=== PATIENT | male | born 1990 | race Caucasian/White ===

== ENCOUNTER 2017-10-28 09:45 | Emergency (ER) | payer OTHER, SELFPAY ==
[2017-10-28 09:48] VITALS: BP 133/86; PULSE 73; RESP 16; TEMP 37.4; O2SAT 99; BMI 30.1
--- NOTE | 2017-10-28 10:14 | ED.VISSUMM ---
- ER Visit Summary Date of Service: 10/28/17 Chief Complaint: Left lower quadrant abdominal wall pain History of Present Illness: The patient is a 27 M who presents with left lower quadrant abdominal pain. He was playing basketball yesterday. Apparently there was a family contest of dunking. He was kneed in the right lower quadrant. He presents with left lower quadrant pain. Sitting up standing up bending over causes him pain. He denies nausea, vomiting diarrhea. He denies hematemesis, melena hematochezia. He denies dysuria, frequency, urgency or hematuria. He has no other complaints. There is no past medical history diabetes, renal disease or bleeding ulcers. Physical Examination: Vital signs are noted and blood pressure slightly elevated 133/86. He appears no obvious distress. HEENT is unremarkable. Insert cardiac normal exam abdomen is remarkable tenderness left lower quadrant without guarding or rebound tenderness. There is no outward signs of trauma. There is no CVA tenderness. Remainder of exam is unremarkable. Test Results: None Emergency Department Course and Treatment: NSAIDs since there is no contraindication. Treatment Plan: With history of trauma and movement causing him pain with no guarding rebound tenderness etc. we will treat symptomatically Disposition: Discharged home Impression: Abdominal wall strain secondary to blunt trauma This note was generated with [facility] dictation software. It may contain incorrect words, spelling, and punctuation that were not noted in review of the chart prior to signing ED Disposition - Plan for ED Patient: Disposition: Home or Assisted Living Chief Complaint: Abd Pain Instructions: ED Strain Abdominal Muscle Prescriptions: Naproxen [Naprosyn] 500 mg PO BID #10 tab Referrals: Yo Lozano MD [Primary Care Provider] - 1 Week if not improving
== END 2017-10-28 10:27 | disposition home or self-care (01) ==
PROVIDERS: Emergency Provider Emergency Medicine; Family Provider Family Medicine; PCP Family Medicine
DX: S39.011A Strain of muscle, fascia and tendon of abdomen, initial encounter (principal); W21.9XXA Striking against or struck by unspecified sports equipment, initial encounter; Y93.67 Activity, basketball; Y92.310 Basketball court as the place of occurrence of the external cause; Y99.8 Other external cause status
CPT/HCPCS: 99282

== ENCOUNTER 2022-07-24 07:35 | Emergency (ER) | payer OTHER, SELFPAY ==
[2022-07-24 07:36] VITALS: BP 147/91; PULSE 78; RESP 18; TEMP 36.1; O2SAT 99; BMI 33.4
--- NOTE | 2022-07-24 07:48 | EX.ED.UPPERE ---
HPI History of Present Illness Chief Complaint: Upper Extremity Injury Informant: patient Onset/Context/Timing Onset: Days (5 days) Context: Gradual Onset Timing: Waxes and wanes Current Severity: Moderate Maximum Severity: Moderate Narrative Narrative: Patient presents secondary to left shoulder and arm pain. He states last he was picking up sticks in his yard before mowing. He then mowed the yard. That evening he started having some tightness in his left shoulder. Throughout the weekend it is continued to worsen. When sitting at rest he will have an aching sensation around his left shoulder blade that radiates down his arm but is significantly worse with any movement. He will intermittently have some numbness in his hand that is positional in nature. He is right-hand dominant. There was no fall or direct trauma. PFSH PFS Medical History no medical history no medical history Home Medications cyclobenzaprine 10 mg tablet 10 mg PO TID PRN Muscle Spasm #20 TABLETS 07/24/22 [Rx Last Taken Unknown] hydrocodone-acetaminophen 5-325mg 5mg-325mg 1 tab PO Q4H PRN PRN Pain 3 days #10 TABLETS 07/24/22 [Rx Last Taken Unknown] naproxen 500 mg tablet (Naprosyn) 500 mg PO BID PRN pain #20 tabs 07/24/22 [Rx Last Taken Unknown] Allergy/AdvReac Type Severity Reaction Status Date / Time bee pollen Allergy Swelling Verified 07/24/22 07:46 Social History Smoking Status: Current every day smoker tobacco type: cigarettes ROS ROS ED Constitutional Constitutional ED: Denies chills or fever(s) Eyes Eyes: Denies change in vision or discharge from eye(s) ENT ENT ED: Denies discharge from eye(s) Cardiovascular Cardiovascular: Denies chest pain or palpitations Respiratory/Chest Respiratory/Chest: Denies cough or dyspnea Gastrointestinal Gastrointestinal: Denies abdominal pain, nausea or vomiting Genitourinary Genitourinary ED: Denies dysuria Musculoskeletal Musculoskeletal: Reports back pain and extremity pain Integumentary Denies Abrasions or rash Neurologic Neurologic: Reports paresthesias; Denies headache(s) or weakness Psychiatric Psychiatric: Denies anxiety or depression Allergic/Immunologic Allergic/Immunologic ED: Denies lip swelling or urticaria EXAM Physical Exam Const Vital Signs: 07/24/22 07:36 Temperature 96.9 F L Temperature Source Temporal Pulse Rate 78 Respiratory Rate 18 Blood Pressure 147/91 H Blood Pressure Mean 109 Pulse Ox 99 Oxygen Delivery Method Room Air Positive well nourished and well developed General Appearance ED: well developed HEENT Reports moist mucous membranes Eyes PERRL and EOMs intact bilaterally Chest Wall inspection of chest normal and palpation of chest normal Resp normal respiratory effort and clear to auscultation bilaterally Cardio regular rate and regular rhythm GI non-tender Back/Spine Back/Spine Narrative: Reproducible tenderness in the left thoracic paraspinal muscles. Extremity Extremity Narrative: No focal tenderness to palpation over the shoulder or elbow on the left upper extremity. Strong distal pulses. Strong hand grasp. Neuro oriented x3 and moves all extremities Neuro Narrative: No focal neurodeficits. Sensorium / Orientation: alert MDM MDM MDM Narrative Medical decision making narrative: Patient's history and exam all appear to be consistent with musculoskeletal pain. I do not feel imaging is needed at this time. Patient will be initiated with naproxen, Flexeril, [place]. He is given a work note for today. Discharge Plan Triage Chief Complaint: Upper Extremity Injury ED Provider: Francy Ashton Dx/Rx/DC Orders Clinical Impression: Strain of thoracic paraspinal muscles excluding T1 and T2 levels, Muscle spasm, Radiculopathy Instructions: ED Back Spasm, No Trauma, ED Muscle Spasm Prescriptions: New naproxen [Naprosyn] 500 mg tablet 500 mg PO BID PRN (Reason: pain) Qty: 20 0RF cyclobenzaprine 10 mg tablet 10 mg PO TID PRN (Reason: Muscle Spasm) Qty: 20 0RF hydrocodone-acetaminophen 5-325 mg tablet 1 tab PO Q4H PRN PRN (Reason: Pain) 3 Days Qty: 10 0RF Stand Alone Forms: ED Work / School Excuse Primary Care Provider: Yo Lozano Referrals: Yo Lozano MD [Primary Care Provider] - 3-5 Days if not improving Disposition Disposition: Home, Self Care
[2022-07-24] MEDS: Naproxen 500 MG Tablet PO (08:02)
[2022-07-24 08:03] VITALS: BP 143/79; PULSE 78; RESP 16; TEMP 36.7; O2SAT 99
== END 2022-07-24 08:07 | disposition home or self-care (01) ==
LOC: ED 08:01
PROVIDERS: Emergency Provider Emergency Medicine; Visit Provider Emergency Medicine
DX: S29.019A Strain of muscle and tendon of unspecified wall of thorax, initial encounter (principal); F17.210 Nicotine dependence, cigarettes, uncomplicated; M25.512 Pain in left shoulder; R20.2 Paresthesia of skin; X58.XXXA Exposure to other specified factors, initial encounter
CPT/HCPCS: 99283

== ENCOUNTER 2022-08-20 09:06 | Emergency (ER) | payer OTHER, SELFPAY ==
[2022-08-20 09:06] VITALS: BP 169/109; PULSE 88; RESP 14; TEMP 36.1; O2SAT 97; BMI 34.2
--- NOTE | 2022-08-20 09:19 | EDS_ITS ---
HPI History of Present Illness Chief Complaint: Other, Pain/Inj Informant: patient Onset/Context/Timing Onset: Days (3) Context: Sudden Onset Timing: Continuous Quality: Dull Location: Left forearm, elbow, and shoulder Worsened by: Nothing Relieved by: Nothing Narrative Narrative: Patient presents with pain in his shoulder, elbow, and left arm that began 3 days ago. Patient states he was lifting some luggage when he felt the pain. Patient states it began rather suddenly. Patient describes the pain as dull. Patient states it has been constant for the last 3 days. Patient admits to some numbness in his forearm and tingling into his fingers. Patient states he has some weakness due to the pain. Patient states nothing makes it better and nothing makes it worse. Patient states he has been taking ibuprofen and using hot showers and hot baths with minimal relief. Patient admits to some pain in his left axilla/chest area. PFSH PFS Medical History no medical history no medical history Home Medications cyclobenzaprine 10 mg tablet 10 mg PO TID PRN Muscle Spasm #20 TABLETS 08/20/22 [Rx Last Taken Unknown] hydrocodone-acetaminophen 5-325mg 5mg-325mg 1 tab PO Q4H PRN PRN Pain 3 days #10 TABLETS 08/20/22 [Rx Last Taken Unknown] naproxen 500 mg tablet (Naprosyn) 500 mg PO BID PRN pain #20 tabs 08/20/22 [Rx Last Taken Unknown] Allergy/AdvReac Type Severity Reaction Status Date / Time bee pollen Allergy Swelling Verified 07/24/22 07:46 Surgical History no surgical history no surgical history Social History Smoking Status: Current every day smoker tobacco type: cigarettes ROS ROS ED Constitutional Constitutional ED: Denies chills or fever(s) Eyes Eyes: Denies blurry vision or change in vision ENT ENT ED: Denies rhinorrhea or sore throat Cardiovascular Cardiovascular: Reports chest pain; Denies palpitations Respiratory/Chest Respiratory/Chest: Denies cough or dyspnea Gastrointestinal Gastrointestinal: Denies nausea or vomiting Genitourinary Genitourinary ED: Denies dysuria or hematuria Musculoskeletal Musculoskeletal: Reports back pain; Denies neck pain Integumentary Denies abscess or rash Neurologic Neurologic: Reports paresthesias LUE and weakness; Denies headache(s) Allergic/Immunologic Allergic/Immunologic ED: Denies mouth swelling or urticaria EXAM Physical Exam Const Vital Signs: 08/20/22 09:06 Temperature 96.9 F L Temperature Source Temporal Pulse Rate 88 Respiratory Rate 14 Blood Pressure 169/109 H Blood Pressure Mean 129 Pulse Ox 97 Oxygen Delivery Method Room Air Positive well nourished and well developed General Appearance ED: well developed and NAD HEENT Reports moist mucous membranes Neck supple and no JVD GI Palpation: soft Extremity normal to inspection Extremity Narrative: There is mild tenderness over the left forearm, elbow, and shoulder. There is no edema or ecchymosis. There is no bony crepitance or step-off. There is no deformity noted. There is good range of motion. Strength is 5/5 in the radial, median, and ulnar areas. Sensation was intact to light touch in the radial, median, ulnar, and axillary areas. Radial pulses are equal bilaterally. There is also tenderness over the left scapula and parascapular muscles. There is some spasm of these muscles. General Extremety ED: Yes tenderness; Negative for edema General Extremity: Negative for edema Neuro oriented x3, CN's II-XII intact bilaterally and no sensory deficits noted Sensorium / Orientation: alert Motor Exam: strength 5/5 throughout Psych mental status grossly normal MDM MDM MDM Narrative Medical decision making narrative: Patient was advised that this is most likely muscular strain that may be causing some nerve impingement. Patient had questions about x-rays. I advised the patient that the x-rays would not be beneficial at this time since there is no trauma or questionable fracture/dislocation. Patient understands and is agreeable. Patient was given a dose of [place], Flexeril, and Naprosyn here. Darwin abdi was given prescriptions for the same. Patient was instructed to follow-up with his primary care physician for further evaluation. Patient was advised that he may need other testing as an outpatient such as potential nerve conduction studies, EMGs, or MRI which are not available to the emergency department. Patient understands and is agreeable with the plan. All questions were answered. 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
[2022-08-20] MEDS: HYDROcodone Bitartrate/Apap 5/325 Tablet PO (09:40)
[2022-08-20] MEDS: Naproxen 250 MG Tablet 500 MG PO (09:40)
[2022-08-20] MEDS: cycloBENZAPRine HCl 10 MG Tablet PO (09:40)
== END 2022-08-20 09:42 | disposition home or self-care (01) ==
PROVIDERS: Emergency Provider Emergency Medicine; PCP Family Medicine; Visit Provider Emergency Medicine
DX: G62.9 Polyneuropathy, unspecified (principal); F17.210 Nicotine dependence, cigarettes, uncomplicated
CPT/HCPCS: 99283

== ENCOUNTER → 2024-11-10 | Outpatient (CLI) | payer BC, SELFPAY ==
[2024-11-10 17:56] LABS: Hematocrit 46.8 % (40-54); Hemoglobin 16.0 g/dL (13.0-16.5); Mean Corp Hgb Conc 34.2 g/dL (32-36); Mean Corpuscular Volume 84.2 fL (80-94); Mean Platelet Vol. 9.4 fl (6.2-12.0); Platelet Count 301 K/mm3 (150-450); RBC Distribution Width CV 13.0 % (11.6-14.6); RBC Distribution Width SD 39.9 fl (35.1-43.9); Red Blood Count 5.56 M/mm3 (4.6-6.2); White Blood Count 9.1 K/mm3 (4.4-11.0)
[2024-11-10 19:22] LABS: AST(SGOT) 24 U/L (<=37); Alanine Aminotransfer ALT/SGPT 41 U/L (<=46); Albumin, Serum 4.7 g/dL (3.5-5.0); Alkaline Phosphatase 69 U/L (40-129); Anion Gap 13 (5-15); BUN 14 mg/dL (4-19); BUN/Creat Ratio 13.3 RATIO (10-20); Calcium,Total 9.8 mg/dL (7.6-11.0); Carbon Dioxide 23.4 mmol/L (21.0-32.0); Chloride 103 mmol/L (98-108); Cholesterol 231 mg/dL (<=200); Globulin 3.2 g/dL (2.2-4.2); Glucose 85 mg/dL (70-99); Low Density Lipoprotein Calc. 66 mg/dL; Potassium 4.0 mmol/L (3.3-5.1); Triglycerides 698 mg/dL; Very Low Density Lipoprotein 140 mg/dL (5-40); Vitamin D,25 Hydroxy 29.2 ng/mL (30-100); cholesterol:hdl ratio screen 8.95
== END | disposition home or self-care (01) ==
LOC: MFPLAB 15:38
PROVIDERS: PCP Family Medicine; Referring Provider Family Medicine; Visit Provider Family Medicine
DX: Z13.1 Encounter for screening for diabetes mellitus (principal); R53.83 Other fatigue; Z13.220 Encounter for screening for lipoid disorders
CPT/HCPCS: 36415; 80053; 80061; 82306; 84443; 85027

== ENCOUNTER → 2024-12-28 | Outpatient (CLI) | payer BC, SELFPAY ==
[2024-12-28 18:20] LABS: Syphilis Antibodies Nonreactive (Nonreactive)
[2024-12-29 13:07] LABS: HIV Nonreactive (Nonreactive)
== END | disposition home or self-care (01) ==
LOC: MTLAB 16:15
PROVIDERS: PCP Family Medicine; Referring Provider Family Medicine; Visit Provider Family Medicine
DX: Z11.4 Encounter for screening for human immunodeficiency virus [HIV] (principal); R30.0 Dysuria
CPT/HCPCS: 36415; 86703; 86780; 87491; 87591